=== PATIENT | female | born 1970 | race Caucasian/White ===

== ENCOUNTER 2019-03-12 18:58 | Inpatient (IN) | payer OTHER ==
[~2019-03-12] VITALS: Ht 157.5 cm; Wt 81.6 kg
--- NOTE | 2019-03-12 19:00 | NUR ---
ED Nurse Note: Patient was brought in by RA 94 c/o chest pain. Patient stated that her feeling a sharp chest pain. Patinet verbalized that the chest pain happened after smoking cigarette. Facial grimacing noted. No chest heaviness noted. Speech is clear not slurred. No facial drooping noted. No numbing sensation of upper extremities noted. Patient is alert and oriented x4.
[2019-03-12] MEDS ORDERED: GLIPIZIDE5 MG ORAL (19:03)
[2019-03-12] MEDS ORDERED: LISINOPRIL5 MG ORAL (19:03)
[2019-03-12] MEDS ORDERED: CLOPIDOGREL75 MG ORAL (19:03)
[2019-03-12] MEDS ORDERED: CARVEDILOL3.125 MG ORAL (19:03)
[2019-03-12] MEDS ORDERED: ASPIRIN81 MG ORAL (19:03)
[2019-03-12] MEDS ORDERED: FUROSEMIDE40 MG ORAL (19:03)
[2019-03-12] MEDS ORDERED: HEPARIN SO5000 UNIT2 SUBQ (19:03)
--- NOTE | 2019-03-12 19:21 | NUR ---
ED Nurse Note: Lab notified to obtain lab
--- NOTE | 2019-03-12 19:25 | NUR ---
ED Nurse Note: Recieved reprot to resume care, pt in bed awake and alert, on cardiac monitoring, pt here for chest pain, states at 8/10 and pressure feeling, IV line started and labs obtained and sent, pt tolerated well, no sob or labored breathing, will resume care as ordered and closely monitor.
[2019-03-12 19:45] VITALS: BP 92/72
[2019-03-12 19:57] LABS: ANION GAP 6 mmol/L (5-15); BASOPHILS % (AUTO) 1.7 % (0.0-2.0); BLOOD UREA NITROGEN 22 mg/dL (7-18); CALCIUM 8.8 MG/DL (8.5-10.1); CARBON DIOXIDE 28 MMOL/L (21-32); CHLORIDE 102 MMOL/L (98-107); EOSINOPHILS % (AUTO) 2.7 % (0.0-3.0); HEMATOCRIT 45.5 % (37.0-47.0); LYMPHOCYTES % (AUTO) 32.5 % (20.0-45.0); MEAN CORPUSCULAR VOLUME 88 FL (80-99); MONOCYTES % (AUTO) 7.8 % (1.0-10.0); NEUTROPHILS % (AUTO) 55.2 % (45.0-75.0); PLATELET COUNT 263 K/UL (150-450); POTASSIUM 4.2 MMOL/L (3.5-5.1); RED BLOOD COUNT 5.15 M/UL (4.20-5.40); RED CELL DISTRIBUTION WIDTH 11.8 % (11.6-14.8); SODIUM 136 MMOL/L (136-145); WHITE BLOOD COUNT 6.6 K/UL (4.8-10.8)
[2019-03-12 20:12] LABS: ALANINE AMINOTRANSFERASE 24 U/L (12-78); ALBUMIN/GLOBULIN RATIO 0.8 (1.0-2.7); ALKALINE PHOSPHATASE 122 U/L (46-116); ASPARTATE AMINO TRANSFERASE 13 U/L (15-37); BILIRUBIN,TOTAL 0.3 MG/DL (0.2-1.0); CKMB 1.4 NG/ML (0.0-3.6); CREATINE KINASE 45 U/L (26-308)
[2019-03-12 20:30] VITALS: BP 104/73
--- NOTE | 2019-03-12 20:47 | Emergency Room Report ---
History of Present Illness General Chief Complaint: Chest Pain Source: Patient, EMS Present Illness HPI 48-year-old female presents ED for evaluation. Brought in by EMS complaining of chest pain. Coming from intermediate facility. Chest pain started 30 minutes prior to arrival while smoking a cigarette. Was given aspirin. Was not given nitro as BP was low. Patient states chest pain has resolved. History of recent stent placement. Denies drug use. No other aggravating relieving factors. Denies any other associated symptoms Allergies: Coded Allergies: IODINE (Verified Allergy, Unknown, 03/12/19) METFORMIN (Verified Allergy, Unknown, 03/12/19) SULFAMETHOXAZOLE (Verified Allergy, Unknown, 03/12/19) TRIMETHOPRIM (Verified Allergy, Unknown, 03/12/19) Patient History Past Medical History: DM, HTN, CHF, COPD, psych hx Past Surgical History: none Pertinent Family History: none Social History: Denies: smoking, alcohol use, drug use Last Menstrual Period: 20 YEARS AGO Now: No Immunizations: UTD Reviewed Nursing Documentation: PMH: Agreed; PSxH: Agreed Nursing Documentation-PMH Past Medical History: No Stated History Hx Hypertension: Yes Hx COPD: Yes Hx Diabetes: Yes History Of Psychiatric Problem: Yes - ANXIETY/DEPRESSION Review of Systems All Other Systems: negative except mentioned in HPI Physical Exam Vital Signs Date Time Temp Pulse Resp B/P (MAP) Pulse Ox O2 Delivery O2 Flow Rate FiO2 03/12/19 18:55 98.1 81 18 92/60 (71) 98 03/12/19 19:45 Room Air Sp02 EP Interpretation: reviewed, normal General Appearance: no apparent distress, alert, GCS 15, non-toxic Head: normocephalic, atraumatic Eyes: bilateral eye normal inspection, bilateral eye PERRL ENT: hearing grossly normal, normal pharynx, no angioedema, normal voice Neck: full range of motion, supple/symm/no masses Respiratory: chest non-tender, lungs clear, normal breath sounds, speaking full sentences Cardiovascular #1: regular rate, rhythm, no edema Cardiovascular #2: 2+ carotid (R), 2+ carotid (L), 2+ radial (R), 2+ radial (L) , 2+ dorsalis pedis (R), 2+ dorsalis pedis (L) Gastrointestinal: normal bowel sounds, non tender, soft, non-distended, no guarding, no rebound Rectal: deferred Genitourinary: normal inspection, no CVA tenderness Musculoskeletal: back normal, gait/station normal, normal range of motion, non- tender Neurologic: alert, oriented x3, responsive, motor strength/tone normal, sensory intact, speech normal Psychiatric: judgement/insight normal, memory normal, mood/affect normal, no suicidal/homicidal ideation Reflexes: 3+ bicep (R), 3+ bicep (L), 3+ tricep (R), 3+ tricep (L), 3+ knee (R) , 3+ knee (L) Lymphatic: no adenopathy Medical Decision Making Diagnostic Impression: Primary Impression: ACS (acute coronary syndrome) ER Course Hospital Course 48 yo F presents with chest pain Differential diagnoses include: ME/unstable angina, contusion, muscle strain, PTX, rib fracture Clinical course Patient placed on stretcher. on residential monitor. After initial history and physical I ordered labs, EKG, chest x-ray, IVFs labs reviewed- no leukocytosis, hb/hct stable, electrolytes ok, trop x1 negative , BNP elevated EKG - NSR, twave inversions in lateral leads Chest x-ray- cardiomegaly Systolic in the 90s initially. Nitro was withheld. Patient not having chest pain in ED. Given small IV fluid bolus with BP improved. Given presentation and risk factors patient will be admitted Case discussed with Dr. Rodríguez and he agreed to accept the patient to his service for further care and support I. I feel this is a highly complex case requiring extensive working including EKG/Rhythm strip, Xray/CT/US, Blood/urine lab work, repeat exams while in ED, and administration of strong opiates/narcotics for pain control, admission to hospital or close patient follow up. Diagnosis - ACS admitted to telemetry OBS in serious condition Labs Test 03/12/19 19:35 03/12/19 20:20 White Blood Count 6.6 K/UL (4.8-10.8) Red Blood Count 5.15 M/UL (4.20-5.40) Hemoglobin 15.0 G/DL (12.0-16.0) Hematocrit 45.5 % (37.0-47.0) Mean Corpuscular Volume 88 FL (80-99) Mean Corpuscular Hemoglobin 29.2 PG (27.0-31.0) Mean Corpuscular Hemoglobin Concent 33.0 G/DL (32.0-36.0) Red Cell Distribution Width 11.8 % (11.6-14.8) Platelet Count 263 K/UL (150-450) Mean Platelet Volume 7.9 FL (6.5-10.1) Neutrophils (%) (Auto) 55.2 % (45.0-75.0) Lymphocytes (%) (Auto) 32.5 % (20.0-45.0) Monocytes (%) (Auto) 7.8 % (1.0-10.0) Eosinophils (%) (Auto) 2.7 % (0.0-3.0) Basophils (%) (Auto) 1.7 % (0.0-2.0) Sodium Level 136 MMOL/L (136-145) Potassium Level 4.2 MMOL/L (3.5-5.1) Chloride Level 102 MMOL/L (98-107) Carbon Dioxide Level 28 MMOL/L (21-32) Anion Gap 6 mmol/L (5-15) Blood Urea Nitrogen 22 mg/dL (7-18) Creatinine 1.0 MG/DL (0.55-1.30) Estimat Glomerular Filtration Rate 59.7 mL/min (>60) Glucose Level 231 MG/DL (74-106) Calcium Level 8.8 MG/DL (8.5-10.1) Total Bilirubin 0.3 MG/DL (0.2-1.0) Aspartate Amino Transf (AST/SGOT) 13 U/L (15-37) Alanine Aminotransferase (ALT/SGPT) 24 U/L (12-78) Alkaline Phosphatase 122 U/L (46-116) Total Creatine Kinase 45 U/L (26-308) Creatine Kinase MB 1.4 NG/ML (0.0-3.6) Creatine Kinase MB Relative Index 3.1 Troponin I 0.022 ng/mL (0.000-0.056) Pro-B-Type Natriuretic Peptide 734 pg/mL (0-125) Total Protein 6.6 G/DL (6.4-8.2) Albumin 3.0 G/DL (3.4-5.0) Globulin 3.6 g/dL Albumin/Globulin Ratio 0.8 (1.0-2.7) EKG Diagnostic Results Rate: normal Rhythm: NSR ST Segments: no acute changes ASA given to the pt in ED: No - given by ems Rhythm Strip Diag. Results EP Interpretation: yes Rhythm: NSR, no PVC's, no ectopy Chest X-Ray Diagnostic Results Chest X-Ray Diagnostic Results : Chest X-Ray Ordered: Yes # of Views/Limited/Complete: 1 View Indication: Chest Pain EP Interpretation: Yes Interpretation: no consolidation, no effusion, no pneumothorax, other - cardiomegaly Impression: Other - CHF Electronically Signed by: Electronically signed by Lauri Felix MD Last Vital Signs Date Time Temp Pulse Resp B/P (MAP) Pulse Ox O2 Delivery O2 Flow Rate FiO2 03/12/19 20:30 98.4 88 18 104/73 100 Room Air Status: improved Disposition: ADMITTED INPATIENT Condition: Serious Referrals: Carlyle Rodríguez DO (PCP) Lauri Felix MD Mar 12, 2019 20:47
[2019-03-12] MEDS ORDERED: Miralax 17gm pkt ORAL PRN (21:00)
[2019-03-12] MEDS ORDERED: Albuterol/Ipratropium 3ml neb HHN PRN (21:00)
--- NOTE | 2019-03-12 21:00 | NUR ---
ED Nurse Note: Pt assisted to bathroom, ambulated well, iv site patent, b/p increasing, pt remains weith chest pain at 01/18, MD is aware, pt b/p too low for pain meds at this time, pt is aware, urine sample sent, pt being admitted, swabs collected and belongings completed, pt resting in bed on cardiac monitoring, will continue to monitor and preapre for admission.
[2019-03-12] MEDS ORDERED: Morphine Sulfate 2mg/ml Inj(IV/IM USE ONLY) IVP ONE (21:15)
--- NOTE | 2019-03-12 21:55 | NUR ---
ED Nurse Note: Pt has room for admission, report called to floor nurse RICH Castorena, pt continues to rest quietly in bed, awake and alert, remains with pain at 8/10, medicated with morphine, fluids infusing, belongings list completed, pt being taken to floor bed via gurseb and ACLS protocols with RN and ER-Tech, nad noted during pt transport.
[2019-03-12 22:00] VITALS: BP 102/70
[2019-03-12 22:15] VITALS: BP 113/72
[2019-03-12] MEDS: Heparin 5000 units/ml inj SUBQ SCH (22:15)
[2019-03-12] MEDS: NovoLOG Insulin Flexpen SUBQ SCH (22:15)
--- NOTE | 2019-03-12 22:15 | NUR ---
HX OF DEPRESSION AND SI PER MEDICAL RECORDS. PT DENIES CURRENT SI, HI OR HALLUCINATIONS/DELUSIONS OF ANY KIND.
--- NOTE | 2019-03-12 22:15 | NUR ---
NURSE NOTES: OBTAINED REPORT FOR NEW ADMIT FROM ALEXANDER VILLANUEVA (ED). PT IS FROM [facility]. SHE IS A 48 YEAR OLD FEMALE HERE DUE TO ACUTE CORONARY SYNDROME. SHE IS A/OX4 AND ABLE TO VERBALIZE NEEDS. HEAD TO TOE ASSESSMENT DONE. ADMISSION PROTOCOL COMPLETE. SKIN INTACT UPON ADMISSION, ECCHYMOSIS NOTED TO RIGHT GROIN AREA. EDUCATED PT ON FALL RISK PRECAUTIONS AND RISK FOR SKIN BREAKDOWN. PT VERBALIZED UNDERSTANDING. VSS. PT ORIENTED TO UNIT AND STAFF. ALL NEEDS ANTICIPATED AND MET. CALL LIGHT WITHIN REACH AT ALL TIMES. PT INSTRUCTED TO USE CALL LIGHT PRN ASSISTANCE OR FOR ANY QUESTIONS/CONCERNS. Addendum: 03/13/19 at 0115 by Amber Tristan RN PER REPORT, SWABS FOR VRE/CRE AND MRSA ALREADY DONE AT ED PER FACILITY PROTOCOL.
[2019-03-13] VITALS (8 sets, daily range): BP systolic 87–128; BP diastolic 60–74
[2019-03-13] MEDS: NovoLOG Insulin Flexpen SUBQ SCH ×4 (05:34→22:08)
[2019-03-13] MEDS ORDERED: ZOFRAN4 M1 ORAL (05:56)
[2019-03-13] MEDS ORDERED: ALBUTEROL2.5 MG/3 M INH (05:57)
[2019-03-13] MEDS ORDERED: TRAZODONE HCL150 MG ORAL (06:00)
[2019-03-13] MEDS ORDERED: ABILIFY10 MG ORAL (06:02)
[2019-03-13] MEDS ORDERED: LEXAPRO10 MG ORAL (06:03)
--- NOTE | 2019-03-13 07:00 | NUR ---
FULL REPORT GIVEN TO MIN RN. PT RESTING IN BED FREE FROM APPARENT DISTRESS.
--- NOTE | 2019-03-13 07:00 | NUR ---
NURSE NOTES: Received report from Kell VILLANUEVA. Pt Awake and able to needs known. No c/o pain. No acute distress noted. Bed in the lowest position and locked. Side rails x2 up for safety. On room air. Denied SON. iv LH 22G SL patent and asymptomatic. Will continue to plan of care.
--- NOTE | 2019-03-13 07:26 | NUR ---
SPOKE WITH MARIBEL FROM LAB WHO CONFIRMS SWABS FOR VRE,CRE, AND MRSA HAVE BEEN RECEIVED AND RESULTS ARE PENDING.
[2019-03-13 07:45] LABS: ANION GAP 8 mmol/L (5-15); BLOOD UREA NITROGEN 19 mg/dL (7-18); CALCIUM 8.7 MG/DL (8.5-10.1); CARBON DIOXIDE 23 MMOL/L (21-32); CHLORIDE 110 MMOL/L (98-107); CREATININE 0.8 MG/DL (0.55-1.30); POTASSIUM 4.3 MMOL/L (3.5-5.1); SODIUM 141 MMOL/L (136-145)
--- NOTE | 2019-03-13 08:54 | NUR ---
RADIOLOGY DEPT., CHEST X-RAY DONE.-P.DYE
[2019-03-13] MEDS: Lisinopril 2.5mg tab ORAL SCH ×2 (09:00→09:10)
[2019-03-13] MEDS: ARIPiprazole 10mg tab ORAL SCH (09:09)
[2019-03-13] MEDS: Furosemide 40mg tab ORAL SCH ×2 (09:09→17:24)
[2019-03-13] MEDS: Heparin 5000 units/ml inj SUBQ SCH ×2 (09:12→22:09)
--- NOTE | 2019-03-13 11:02 | NUR ---
*-* NO INSURANCE INFORMATION IN THE BAR UNABLE TO SEND CLINICALS OR REVIEWS *-*
--- NOTE | 2019-03-13 11:21 | NUR ---
CASE MANAGEMENT REVIEW 48 YO FEMALE BIBA FROM [facility] CON[facility]. SNF TO ER CC CHEST PAIN SI- ACUTE CORONARY SYNDROME T- 98.0, HR 81, RR- 18, BP 92/60 NT- PRO BNP- 734 IS NS 500 ML IV BOLUS ASPIRIN 81 MG PO ADMITTED TO TELE STATUS TELE STATUS
--- NOTE | 2019-03-13 11:22 | Diagnostic Imaging Report ---
Indication: Dyspnea Comparison: None A single view chest radiograph was obtained. Findings: Cardiomediastinal appearance is within normal limits for age. The lungs are clear. Pulmonary vascularity is appropriate. The diaphragmatic contour is smooth and costophrenic angles are sharp. No pleural effusions are identified. The bones are unremarkable. Impression: No acute findings
--- NOTE | 2019-03-13 11:28 | Diagnostic Imaging Report ---
Indication: Dyspnea Comparison: 03/12/2019 A single view chest radiograph was obtained. Findings: Cardiac silhouette is enlarged but stable. Lungs remain clear. Surgical clips in the right axilla noted. Costophrenic angles are sharp. IMPRESSION: No change from the previous day
--- NOTE | 2019-03-13 12:56 | Diagnostic Imaging Report ---
APPROVED REPORT CPT Code: 34268 Present Symptoms Shortness of breath Comments: Pain BILATERAL: Imaging reveals a patent deep venous system bilaterally. There is no evidence of thrombus within the common femoral, superficial femoral, popliteal or tibial segments. The greater saphenous veins are within normal limits. Doppler indicates normal spontaneous flow within these segments.
--- NOTE | 2019-03-13 13:02 | Consultation ---
History of Present Illness General Chief Complaint: Chest Pain Present Illness HPI 48-year-old female with hx of cardiomyopathy, CAD, htn, Hepc presented to ED for evaluation of chest pain, started 30 minutes prior to arrival while smoking a cigarette. she has a recent stent placement. Denies current drug use. she is admitted to telemetry for further treatment. Allergies: Coded Allergies: IODINE (Verified Allergy, Unknown, 03/12/19) METFORMIN (Verified Allergy, Unknown, 03/12/19) SULFAMETHOXAZOLE (Verified Allergy, Unknown, 03/12/19) TRIMETHOPRIM (Verified Allergy, Unknown, 03/12/19) Medication History Scheduled Aripiprazole* (Abilify*), 10 MG ORAL DAILY, (Reported) Aspirin* (Aspirin*), 81 MG ORAL DAILY, (Reported) Carvedilol* (Carvedilol*), 3.125 MG ORAL EVERY 12 HOURS, (Reported) Clopidogrel* (Clopidogrel*), 75 MG ORAL DAILY, (Reported) Escitalopram Oxalate* (Lexapro*), 10 MG ORAL DAILY, (Reported) Furosemide* (Lasix*), 40 MG ORAL TWICE A DAY, (Reported) Glipizide* (Glipizide*), 5 MG ORAL BIDAC, (Reported) Heparin Sod (Porcine) (Heparin Sodium*), 5,000 UNITS SUBQ EVERY 12 HOURS, ( Reported) Lisinopril (Lisinopril*), 5 MG ORAL DAILY, (Reported) Ondansetron (Zofran), 4 MG ORAL Q4HR, (Reported) Trazodone* (Trazodone*), 50 MG ORAL BEDTIME, (Reported) Scheduled PRN Albuterol Sulfate* (Albuterol Sulfate Hhn*), 3 ML INH Q4H PRN for Shortness of Breath, (Reported) Patient History Healthcare decision maker ROBER PURVIS ([phone] Resuscitation status Full Code Advanced Directive on File No Past Medical/Surgical History Past Medical/Surgical History: (1) Cardiomyopathy (2) Diabetes mellitus (3) Hepatitis C Review of Systems All Other Systems: negative except mentioned in HPI Physical Exam General Appearance: WD/WN, no apparent distress Lines, tubes and drains: peripheral Neck: non-tender, normal alignment Respiratory/Chest: chest wall non-tender, lungs clear, normal breath sounds Breasts: no masses Cardiovascular/Chest: normal peripheral pulses Abdomen: normal bowel sounds, non tender Genitourinary/Rectal: normal genital exam Extremities: normal range of motion Last 24 Hour Vital Signs Date Time Temp Pulse Resp B/P (MAP) Pulse Ox O2 Delivery O2 Flow Rate FiO2 03/13/19 12:31 97.4 93 17 103/73 (83) 98 03/13/19 12:00 97.4 89 16 87/60 (69) 98 03/13/19 09:37 97.1 86 18 99/74 (82) 100 03/13/19 09:08 89 18 97 Room Air 21 03/13/19 09:00 Room Air 03/13/19 09:00 99/74 03/13/19 08:00 89 03/13/19 08:00 97.1 92 16 93/69 (77) 93 03/13/19 04:00 88 03/13/19 04:00 97.8 65 18 110/60 (77) 97 03/13/19 00:00 98.4 70 18 97/60 (72) 98 03/13/19 00:00 88 03/12/19 23:30 Room Air 03/12/19 22:15 98.6 79 20 113/72 (86) 99 03/12/19 22:10 98.4 88 16 102/70 100 Room Air 03/12/19 22:00 98.4 88 16 102/70 100 Room Air 03/12/19 20:30 98.4 88 18 104/73 100 Room Air 03/12/19 19:45 98.1 84 18 92/72 100 Room Air 03/12/19 19:15 81 18 03/12/19 18:55 98.1 81 18 92/60 (71) 98 Intake and Output 03/12/19 03/13/19 18:59 06:59 Output Total 200 ml Balance -200 ml Output Urine Total 200 ml # Voids 3 Laboratory Tests Test 03/12/19 19:35 03/12/19 20:20 03/13/19 05:35 White Blood Count 6.6 K/UL (4.8-10.8) Red Blood Count 5.15 M/UL (4.20-5.40) Hemoglobin 15.0 G/DL (12.0-16.0) Hematocrit 45.5 % (37.0-47.0) Mean Corpuscular Volume 88 FL (80-99) Mean Corpuscular Hemoglobin 29.2 PG (27.0-31.0) Mean Corpuscular Hemoglobin Concent 33.0 G/DL (32.0-36.0) Red Cell Distribution Width 11.8 % (11.6-14.8) Platelet Count 263 K/UL (150-450) Mean Platelet Volume 7.9 FL (6.5-10.1) Neutrophils (%) (Auto) 55.2 % (45.0-75.0) Lymphocytes (%) (Auto) 32.5 % (20.0-45.0) Monocytes (%) (Auto) 7.8 % (1.0-10.0) Eosinophils (%) (Auto) 2.7 % (0.0-3.0) Basophils (%) (Auto) 1.7 % (0.0-2.0) Sodium Level 136 MMOL/L (136-145) 141 MMOL/L (136-145) Potassium Level 4.2 MMOL/L (3.5-5.1) 4.3 MMOL/L (3.5-5.1) Chloride Level 102 MMOL/L (98-107) 110 MMOL/L (98-107) H Carbon Dioxide Level 28 MMOL/L (21-32) 23 MMOL/L (21-32) Anion Gap 6 mmol/L (5-15) 8 mmol/L (5-15) Blood Urea Nitrogen 22 mg/dL (7-18) H 19 mg/dL (7-18) H Creatinine 1.0 MG/DL (0.55-1.30) 0.8 MG/DL (0.55-1.30) Estimat Glomerular Filtration Rate 59.7 mL/min (>60) > 60 mL/min (>60) Glucose Level 231 MG/DL (74-106) H 100 MG/DL (74-106) # Calcium Level 8.8 MG/DL (8.5-10.1) 8.7 MG/DL (8.5-10.1) Total Bilirubin 0.3 MG/DL (0.2-1.0) Aspartate Amino Transf (AST/SGOT) 13 U/L (15-37) L Alanine Aminotransferase (ALT/SGPT) 24 U/L (12-78) Alkaline Phosphatase 122 U/L (46-116) H Total Creatine Kinase 45 U/L (26-308) Creatine Kinase MB 1.4 NG/ML (0.0-3.6) Creatine Kinase MB Relative Index 3.1 Troponin I 0.022 ng/mL (0.000-0.056) Pro-B-Type Natriuretic Peptide 734 pg/mL (0-125) H Total Protein 6.6 G/DL (6.4-8.2) Albumin 3.0 G/DL (3.4-5.0) L Globulin 3.6 g/dL Albumin/Globulin Ratio 0.8 (1.0-2.7) L Urine Opiates Screen Negative (NEGATIVE) Urine Barbiturates Screen Negative (NEGATIVE) Phencyclidine (PCP) Screen Negative (NEGATIVE) Urine Amphetamines Screen Negative (NEGATIVE) Urine Benzodiazepines Screen Negative (NEGATIVE) Urine Cocaine Screen Negative (NEGATIVE) Urine Marijuana (THC) Screen Negative (NEGATIVE) Height (Feet): 5 Height (Inches): 2.00 Weight (Pounds): 180 Medications Current Medications Medications (Trade) Dose Ordered Sig/Bre Route PRN Reason Start Time Stop Time Status Last Admin Dose Admin Acetaminophen (Tylenol) 650 mg Q4H PRN ORAL Fever 03/12/19 21:00 04/11/19 20:59 Albuterol/ Ipratropium (Albuterol/ Ipratropium) 3 ml Q4H PRN HHN Shortness of Breath 03/12/19 21:00 03/17/19 20:59 Aripiprazole (Abilify) 10 mg DAILY ORAL 03/13/19 09:00 04/12/19 08:59 03/13/19 09:09 Clopidogrel Bisulfate (Plavix) 75 mg DAILY ORAL 03/13/19 09:00 04/12/19 08:59 03/13/19 09:09 Dextrose (Dextrose 50%) 25 ml Q30M PRN IV Hypoglycemia 03/12/19 21:00 04/11/19 20:59 Dextrose (Dextrose 50%) 50 ml Q30M PRN IV Hypoglycemia 03/12/19 21:00 04/11/19 20:59 Escitalopram Oxalate (Lexapro) 10 mg DAILY ORAL 03/13/19 09:00 04/12/19 08:59 03/13/19 09:09 Furosemide (Lasix) 40 mg TWICE A DAY ORAL 03/13/19 09:00 04/12/19 08:59 03/13/19 09:09 Heparin Sodium (Porcine) (Heparin 5000 units/ml) 5,000 units EVERY 12 HOURS SUBQ 03/12/19 21:00 04/11/19 20:59 03/13/19 09:12 Insulin Aspart (NovoLOG) BEFORE MEALS AND HS SUBQ 03/12/19 21:00 04/11/19 20:59 03/13/19 11:45 Lisinopril (Zestril) 5 mg DAILY ORAL 03/13/19 09:00 04/12/19 08:59 Ondansetron HCl (Zofran) 4 mg Q6H PRN IVP Nausea & Vomiting 03/12/19 21:00 04/11/19 20:59 Polyethylene Glycol (Miralax) 17 gm DAILYPRN PRN ORAL Constipation 03/12/19 21:00 04/11/19 20:59 Temazepam (Restoril) 15 mg HSPRN PRN ORAL Insomnia 03/12/19 21:00 03/19/19 20:59 03/12/19 23:22 Trazodone HCl (Desyrel) 50 mg BEDTIME ORAL 03/13/19 21:00 04/12/19 20:59 Assessment/Plan Problem List: (1) ACS (acute coronary syndrome) ICD Codes: I24.9 - Acute ischemic heart disease, unspecified SNOMED: 967484955 (2) Cardiomyopathy ICD Codes: I42.9 - Cardiomyopathy, unspecified SNOMED: 28821840 (3) Diabetes mellitus ICD Codes: E11.9 - Type 2 diabetes mellitus without complications SNOMED: 81930172 (4) Hepatitis C ICD Codes: B19.20 - Unspecified viral hepatitis C without hepatic coma SNOMED: 57069322 Assessment/Plan: serial ekg, troponin echocardiogram cardiology to see. Katelynn Wilkins MD Mar 13, 2019 13:02
[2019-03-13] MEDS: Morphine Sulfate 2mg/ml Inj(IV/IM USE ONLY) IVP PRN ×2 (15:17→19:53)
--- NOTE | 2019-03-13 17:30 | History and Physical Report ---
DATE OF ADMISSION: 03/12/2019 CONSULTANTS: 1. Jerald Gonzalez M.D. 2. Katelynn Wilkins M.D. CHIEF COMPLAINT: Shortness of breath and chest pain. BRIEF HISTORY: This is a 48-year-old female from [facility], presented with shortness of breath, chest pain, sharp substernal radiating to neck, slight dizziness and vomiting, but no loss of consciousness. The patient came to [facility], diagnosed with ACS and CHF and admitted to telemetry for further care. Currently, calm in mood, chest pain has somewhat improved, no complaint. REVIEW OF SYSTEMS: Slight chest pain. Slight shortness of breath. No nausea, vomiting, or diarrhea. PAST MEDICAL HISTORY: Diabetes and hypertension. PAST SURGICAL HISTORY: Gallbladder. MEDICATIONS: Include , morphine, Plavix, Lasix, Restoril, Abilify, Lexapro, Tylenol, heparin, and Zofran. ALLERGIES: Metformin, Bactrim, and iodine dye. SOCIAL HISTORY: Positive smoking. No alcohol. No intravenous drug abuse. FAMILY HISTORY: Noncontributory. PHYSICAL EXAMINATION: GENERAL: Calm in room, oriented x3, and in no acute distress. VITAL SIGNS: Temperature is 97 degrees, pulse 93, respirations 17, and blood pressure 103/73. CARDIOVASCULAR: No murmurs. LUNGS: Distant and clear. ABDOMEN: Bowel sounds positive. Nontender. Nondistended. EXTREMITIES: Show no cyanosis or edema. NEUROLOGIC: The patient moves all extremities, slightly weak. LABORATORY AND DIAGNOSTIC DATA: Labs at this time show CBC is normal. BMP shows chloride 110, BUN 19, otherwise BMP is normal. Troponin 0.022. BNP is 734. Albumin 3.0. Urine tox is negative. ASSESSMENT: 1. ACS. 2. CHF. 3. Diabetes. 4. Hypertension. 5. Malnutrition. PLAN: 1. Blood pressure and blood sugar control. 2. Cardiology followup. 3. Dietary followup. 4. Psych evaluation by . 5. We will continue to follow this patient. Carlyle Rodríguez D.O. DR: DAMASO JOB#: [id number] CC:
--- NOTE | 2019-03-13 18:03 | Cardiology Progress Note ---
Assessment/Plan Assessment/Plan The patient is seen and examined, full consult note will be dictated shortly. Objective Last 24 Hour Vital Signs Date Time Temp Pulse Resp B/P (MAP) Pulse Ox O2 Delivery O2 Flow Rate FiO2 03/13/19 12:31 97.4 93 17 103/73 (83) 98 03/13/19 12:00 97.4 89 16 87/60 (69) 98 03/13/19 12:00 89 03/13/19 09:37 97.1 86 18 99/74 (82) 100 03/13/19 09:08 89 18 97 Room Air 21 03/13/19 09:00 Room Air 03/13/19 09:00 99/74 03/13/19 08:00 89 03/13/19 08:00 97.1 92 16 93/69 (77) 93 03/13/19 04:00 88 03/13/19 04:00 97.8 65 18 110/60 (77) 97 03/13/19 00:00 98.4 70 18 97/60 (72) 98 03/13/19 00:00 88 03/12/19 23:30 Room Air 03/12/19 22:15 98.6 79 20 113/72 (86) 99 03/12/19 22:10 98.4 88 16 102/70 100 Room Air 03/12/19 22:00 98.4 88 16 102/70 100 Room Air 03/12/19 20:30 98.4 88 18 104/73 100 Room Air 03/12/19 19:45 98.1 84 18 92/72 100 Room Air 03/12/19 19:15 81 18 03/12/19 18:55 98.1 81 18 92/60 (71) 98 Intake and Output 03/12/19 03/13/19 19:00 07:00 Output Total 200 ml Balance -200 ml Output Urine Total 200 ml # Voids 5 Laboratory Tests Test 03/12/19 19:35 03/12/19 20:20 03/13/19 05:35 White Blood Count 6.6 K/UL (4.8-10.8) Red Blood Count 5.15 M/UL (4.20-5.40) Hemoglobin 15.0 G/DL (12.0-16.0) Hematocrit 45.5 % (37.0-47.0) Mean Corpuscular Volume 88 FL (80-99) Mean Corpuscular Hemoglobin 29.2 PG (27.0-31.0) Mean Corpuscular Hemoglobin Concent 33.0 G/DL (32.0-36.0) Red Cell Distribution Width 11.8 % (11.6-14.8) Platelet Count 263 K/UL (150-450) Mean Platelet Volume 7.9 FL (6.5-10.1) Neutrophils (%) (Auto) 55.2 % (45.0-75.0) Lymphocytes (%) (Auto) 32.5 % (20.0-45.0) Monocytes (%) (Auto) 7.8 % (1.0-10.0) Eosinophils (%) (Auto) 2.7 % (0.0-3.0) Basophils (%) (Auto) 1.7 % (0.0-2.0) Sodium Level 136 MMOL/L (136-145) 141 MMOL/L (136-145) Potassium Level 4.2 MMOL/L (3.5-5.1) 4.3 MMOL/L (3.5-5.1) Chloride Level 102 MMOL/L (98-107) 110 MMOL/L (98-107) H Carbon Dioxide Level 28 MMOL/L (21-32) 23 MMOL/L (21-32) Anion Gap 6 mmol/L (5-15) 8 mmol/L (5-15) Blood Urea Nitrogen 22 mg/dL (7-18) H 19 mg/dL (7-18) H Creatinine 1.0 MG/DL (0.55-1.30) 0.8 MG/DL (0.55-1.30) Estimat Glomerular Filtration Rate 59.7 mL/min (>60) > 60 mL/min (>60) Glucose Level 231 MG/DL (74-106) H 100 MG/DL (74-106) # Calcium Level 8.8 MG/DL (8.5-10.1) 8.7 MG/DL (8.5-10.1) Total Bilirubin 0.3 MG/DL (0.2-1.0) Aspartate Amino Transf (AST/SGOT) 13 U/L (15-37) L Alanine Aminotransferase (ALT/SGPT) 24 U/L (12-78) Alkaline Phosphatase 122 U/L (46-116) H Total Creatine Kinase 45 U/L (26-308) Creatine Kinase MB 1.4 NG/ML (0.0-3.6) Creatine Kinase MB Relative Index 3.1 Troponin I 0.022 ng/mL (0.000-0.056) Pro-B-Type Natriuretic Peptide 734 pg/mL (0-125) H Total Protein 6.6 G/DL (6.4-8.2) Albumin 3.0 G/DL (3.4-5.0) L Globulin 3.6 g/dL Albumin/Globulin Ratio 0.8 (1.0-2.7) L Urine Opiates Screen Negative (NEGATIVE) Urine Barbiturates Screen Negative (NEGATIVE) Phencyclidine (PCP) Screen Negative (NEGATIVE) Urine Amphetamines Screen Negative (NEGATIVE) Urine Benzodiazepines Screen Negative (NEGATIVE) Urine Cocaine Screen Negative (NEGATIVE) Urine Marijuana (THC) Screen Negative (NEGATIVE) Jerald Gonzalez MD Mar 13, 2019 18:03
--- NOTE | 2019-03-13 18:30 | NUR ---
NURSE NOTES: Pt c/o SOB and O2 sat checked with 95% on room. Called RT for PRN breathing Tx and also applied 2LPM via N/C. Nasal cannula is found broken and explained the patient that i will get the another N/C from RT because that was he last cannula that is on the floor. But she was upset and told me that "she are a stupid liar and i am refusing you are my nurse. Do not come back to me" Explained the patient that the RN will call the RT now to get it but she was upset and walking to the nursing station and states the charge nurse "I am going to refuse the nurse, i do not want to see her anymore" RN called a RT again for the breathing Tx and Nasal cannula. Per RT, he will be on the floor soon after endorse done. Informed the patient that next due of pain med of breathing Tx etc thru another nurse.
--- NOTE | 2019-03-13 19:18 | NUR ---
HAND-OFF: Report given to Meghan VILLANUEVA. Pt remains stable.
--- NOTE | 2019-03-13 19:25 | NUR ---
NURSE NOTES: Received patient from RICH Romeo, patient in stable condition, AOx4, denies pain at this time, ambulatory, on the phone, IV site left hand g 22, asymptomatic, intact, patent, bed low&locked, side rails upx2, call light within reach, will continue to monitor and reassess
[2019-03-13] MEDS: TraZODone 50mg tab ORAL SCH (22:05)
[2019-03-14] VITALS: BP 96/68
--- NOTE | 2019-03-14 01:00 | NUR ---
Patient's Mg is 1.5, called Dr. Gonzalez and Claudette, awaiting call back
[2019-03-14 04:00] VITALS: BP 95/58
[2019-03-14] MEDS: NovoLOG Insulin Flexpen SUBQ SCH ×4 (06:30→20:32)
--- NOTE | 2019-03-14 07:01 | NUR ---
HAND-OFF: Report given to Clay, patient in stable condition, plan of care endorsed.
[2019-03-14 07:07] LABS: BASOPHILS % (AUTO) 1.7 % (0.0-2.0); EOSINOPHILS % (AUTO) 3.4 % (0.0-3.0); HEMATOCRIT 42.9 % (37.0-47.0); LYMPHOCYTES % (AUTO) 32.2 % (20.0-45.0); MEAN CORPUSCULAR VOLUME 89 FL (80-99); MONOCYTES % (AUTO) 6.6 % (1.0-10.0); NEUTROPHILS % (AUTO) 56.1 % (45.0-75.0); PLATELET COUNT 233 K/UL (150-450); RED BLOOD COUNT 4.82 M/UL (4.20-5.40); RED CELL DISTRIBUTION WIDTH 12.7 % (11.6-14.8); WHITE BLOOD COUNT 5.8 K/UL (4.8-10.8)
[2019-03-14 07:28] LABS: ANION GAP 8 mmol/L (5-15); BLOOD UREA NITROGEN 19 mg/dL (7-18); CALCIUM 8.9 MG/DL (8.5-10.1); CARBON DIOXIDE 24 MMOL/L (21-32); CHLORIDE 106 MMOL/L (98-107); CREATININE 0.9 MG/DL (0.55-1.30); POTASSIUM 4.2 MMOL/L (3.5-5.1); SODIUM 138 MMOL/L (136-145)
[2019-03-14] MEDS: Morphine Sulfate 2mg/ml Inj(IV/IM USE ONLY) IVP PRN ×2 (07:51→18:10)
[2019-03-14 08:00] VITALS: BP 100/72
--- NOTE | 2019-03-14 08:11 | NUR ---
NURSE NOTES: Pt in bed in low position, call light within reach, IV site left hand 24 intact and asymptomatic, pt reports chest pain of 7/10 MS was given, mag level was 1.5 2 bags to be given, pt eating breakfast at bedside, no s/s of distress or sob noted. pt has bathroom privileges,
--- NOTE | 2019-03-14 09:03 | General Progress Note ---
Assessment/Plan Problem List: (1) HTN (hypertension) ICD Codes: I10 - Essential (primary) hypertension SNOMED: 73473882 (2) CHF (congestive heart failure) ICD Codes: I50.9 - Heart failure, unspecified SNOMED: 81918995 (3) Chest pain ICD Codes: R07.9 - Chest pain, unspecified SNOMED: 09739581 (4) ACS (acute coronary syndrome) ICD Codes: I24.9 - Acute ischemic heart disease, unspecified SNOMED: 259017252 (5) Diabetes mellitus ICD Codes: E11.9 - Type 2 diabetes mellitus without complications SNOMED: 95496105 Status: stable, progressing Assessment/Plan: pt diet pain control cardio f/u cbc bmp am Subjective Constitutional: Reports: weakness Allergies: Coded Allergies: IODINE (Verified Allergy, Unknown, 03/12/19) METFORMIN (Verified Allergy, Unknown, 03/12/19) SULFAMETHOXAZOLE (Verified Allergy, Unknown, 03/12/19) TRIMETHOPRIM (Verified Allergy, Unknown, 03/12/19) All Systems: reviewed and negative except above Subjective sleepy calm Objective Last 24 Hour Vital Signs Date Time Temp Pulse Resp B/P (MAP) Pulse Ox O2 Delivery O2 Flow Rate FiO2 03/14/19 08:21 98.3 03/14/19 08:00 98.3 85 18 100/72 (81) 97 03/14/19 04:00 82 03/14/19 04:00 97.3 65 18 95/58 (70) 97 03/14/19 00:00 97.6 81 20 96/68 (77) 95 03/14/19 00:00 74 03/14/19 00:00 97.6 73 18 96/68 (77) 97 03/13/19 21:00 Room Air 03/13/19 21:00 81 109/69 03/13/19 20:00 97.3 81 20 109/69 (82) 97 03/13/19 20:00 97.3 81 20 109/69 (82) 95 03/13/19 20:00 84 03/13/19 19:18 87 18 100 Nasal Cannula 2.0 28 86 18 98 03/13/19 16:00 84 03/13/19 16:00 98.2 88 20 106/73 (84) 95 03/13/19 12:31 97.4 93 17 103/73 (83) 98 03/13/19 12:00 97.4 89 16 87/60 (69) 98 03/13/19 12:00 89 03/13/19 09:37 97.1 86 18 99/74 (82) 100 03/13/19 09:08 89 18 97 Room Air 21 Intake and Output 03/13/19 03/14/19 19:00 07:00 Intake Total 1000 ml Output Total 200 ml Balance 800 ml Intake Oral 1000 ml Output Urine Total 200 ml # Voids 4 # Bowel Movements 1 Laboratory Tests 03/13/19 19:50: Magnesium Level 1.5L, Troponin I 0.054 03/14/19 05:55: White Blood Count 5.8, Red Blood Count 4.82, Hemoglobin 14.0, Hematocrit 42.9, Mean Corpuscular Volume 89, Mean Corpuscular Hemoglobin 29.0, Mean Corpuscular Hemoglobin Concent 32.5, Red Cell Distribution Width 12.7, Platelet Count 233, Mean Platelet Volume 8.4, Neutrophils (%) (Auto) 56.1, Lymphocytes (%) (Auto) 32.2, Monocytes (%) (Auto) 6.6, Eosinophils (%) (Auto) 3.4H, Basophils (%) (Auto ) 1.7, Sodium Level 138, Potassium Level 4.2, Chloride Level 106, Carbon Dioxide Level 24, Anion Gap 8, Blood Urea Nitrogen 19H, Creatinine 0.9, Estimat Glomerular Filtration Rate > 60, Glucose Level 182H, Calcium Level 8.9 Height (Feet): 5 Height (Inches): 2.00 Weight (Pounds): 180 General Appearance: lethargic EENT: normal ENT inspection Neck: normal alignment Cardiovascular: normal peripheral pulses, normal rate, regular rhythm Respiratory/Chest: chest wall non-tender, lungs clear, normal breath sounds Abdomen: normal bowel sounds, non tender, soft Extremities: normal inspection Edema: no edema noted Arm (L), no edema noted Arm (R), no edema noted Leg (L), no edema noted Leg (R), no edema noted Pedal (L), no edema noted Pedal (R), no edema noted Generalized Neurologic: motor weakness Skin: normal pigmentation, warm/dry Carlyle Rodríguez DO Mar 14, 2019 09:03
[2019-03-14] MEDS: Furosemide 40mg tab ORAL SCH ×3 (10:15→18:11)
[2019-03-14] MEDS: Lisinopril 2.5mg tab ORAL SCH (10:15)
[2019-03-14] MEDS: Heparin 5000 units/ml inj SUBQ SCH ×2 (10:15→20:29)
[2019-03-14] MEDS: ARIPiprazole 10mg tab ORAL SCH (10:16)
[2019-03-14 12:00] VITALS: BP 90/61
--- NOTE | 2019-03-14 12:13 | Pulmonology Progress Note ---
Assessment/Plan Problems: (1) ACS (acute coronary syndrome) (2) Cardiomyopathy (3) Diabetes mellitus (4) Hepatitis C Assessment/Plan improving all reviewed pt wants to go back to jail. Subjective ROS Limited/Unobtainable: No Constitutional: Reports: no symptoms HEENT: Repors: no symptoms Allergies: Coded Allergies: IODINE (Verified Allergy, Unknown, 03/12/19) METFORMIN (Verified Allergy, Unknown, 03/12/19) SULFAMETHOXAZOLE (Verified Allergy, Unknown, 03/12/19) TRIMETHOPRIM (Verified Allergy, Unknown, 03/12/19) Objective Last 24 Hour Vital Signs Date Time Temp Pulse Resp B/P (MAP) Pulse Ox O2 Delivery O2 Flow Rate FiO2 03/14/19 10:16 85 100/72 03/14/19 10:15 100/72 03/14/19 09:27 Room Air 03/14/19 08:21 98.3 03/14/19 08:00 98.3 85 18 100/72 (81) 97 03/14/19 04:00 82 03/14/19 04:00 97.3 65 18 95/58 (70) 97 03/14/19 00:00 97.6 81 20 96/68 (77) 95 03/14/19 00:00 74 03/14/19 00:00 97.6 73 18 96/68 (77) 97 03/13/19 21:00 Room Air 03/13/19 21:00 81 109/69 03/13/19 20:00 97.3 81 20 109/69 (82) 97 03/13/19 20:00 97.3 81 20 109/69 (82) 95 03/13/19 20:00 84 03/13/19 19:18 87 18 100 Nasal Cannula 2.0 28 86 18 98 03/13/19 16:00 84 03/13/19 16:00 98.2 88 20 106/73 (84) 95 03/13/19 12:31 97.4 93 17 103/73 (83) 98 Intake and Output 03/13/19 03/14/19 18:59 06:59 Intake Total 1000 ml Output Total 200 ml Balance 800 ml Intake Oral 1000 ml Output Urine Total 200 ml # Voids 4 # Bowel Movements 1 General Appearance: WD/WN HEENT: normocephalic, atraumatic Respiratory/Chest: chest wall non-tender, lungs clear Cardiovascular: normal peripheral pulses, no gallop/murmur Abdomen: non distended Extremities: no cyanosis Skin: no lesions Laboratory Tests 03/13/19 19:50: Magnesium Level 1.5L, Troponin I 0.054 03/14/19 05:55: White Blood Count 5.8, Red Blood Count 4.82, Hemoglobin 14.0, Hematocrit 42.9, Mean Corpuscular Volume 89, Mean Corpuscular Hemoglobin 29.0, Mean Corpuscular Hemoglobin Concent 32.5, Red Cell Distribution Width 12.7, Platelet Count 233, Mean Platelet Volume 8.4, Neutrophils (%) (Auto) 56.1, Lymphocytes (%) (Auto) 32.2, Monocytes (%) (Auto) 6.6, Eosinophils (%) (Auto) 3.4H, Basophils (%) (Auto ) 1.7, Sodium Level 138, Potassium Level 4.2, Chloride Level 106, Carbon Dioxide Level 24, Anion Gap 8, Blood Urea Nitrogen 19H, Creatinine 0.9, Estimat Glomerular Filtration Rate > 60, Glucose Level 182H, Calcium Level 8.9 Current Medications Medications (Trade) Dose Ordered Sig/Bre Route PRN Reason Start Time Stop Time Status Last Admin Dose Admin Acetaminophen (Tylenol) 650 mg Q4H PRN ORAL Fever 03/12/19 21:00 04/11/19 20:59 Albuterol/ Ipratropium (Albuterol/ Ipratropium) 3 ml Q4H PRN HHN Shortness of Breath 03/12/19 21:00 03/17/19 20:59 03/13/19 19:18 Aripiprazole (Abilify) 10 mg DAILY ORAL 03/13/19 09:00 04/12/19 08:59 03/14/19 10:16 Carvedilol (Coreg) 3.125 mg EVERY 12 HOURS ORAL 03/13/19 21:00 04/12/19 20:59 03/14/19 10:16 Clopidogrel Bisulfate (Plavix) 75 mg DAILY ORAL 03/13/19 09:00 04/12/19 08:59 03/14/19 10:16 Dextrose (Dextrose 50%) 25 ml Q30M PRN IV Hypoglycemia 03/12/19 21:00 04/11/19 20:59 Dextrose (Dextrose 50%) 50 ml Q30M PRN IV Hypoglycemia 03/12/19 21:00 04/11/19 20:59 Escitalopram Oxalate (Lexapro) 10 mg DAILY ORAL 03/13/19 09:00 04/12/19 08:59 03/14/19 10:16 Furosemide (Lasix) 40 mg TWICE A DAY ORAL 03/13/19 09:00 04/12/19 08:59 03/13/19 17:24 Heparin Sodium (Porcine) (Heparin 5000 units/ml) 5,000 units EVERY 12 HOURS SUBQ 03/12/19 21:00 04/11/19 20:59 03/13/19 22:09 Insulin Aspart (NovoLOG) BEFORE MEALS AND HS SUBQ 03/12/19 21:00 04/11/19 20:59 03/13/19 22:08 Lisinopril (Zestril) 5 mg DAILY ORAL 03/13/19 09:00 04/12/19 08:59 Morphine Sulfate (Morphine Sulfate) 2 mg Q4H PRN IVP For Pain 03/13/19 13:30 03/20/19 13:29 03/14/19 07:51 Ondansetron HCl (Zofran) 4 mg Q6H PRN IVP Nausea & Vomiting 03/12/19 21:00 04/11/19 20:59 Polyethylene Glycol (Miralax) 17 gm DAILYPRN PRN ORAL Constipation 03/12/19 21:00 04/11/19 20:59 Temazepam (Restoril) 15 mg HSPRN PRN ORAL Insomnia 03/12/19 21:00 03/19/19 20:59 03/13/19 22:18 Trazodone HCl (Desyrel) 50 mg BEDTIME ORAL 03/13/19 21:00 04/12/19 20:59 03/13/19 22:05 Katelynn Wilkins MD Mar 14, 2019 12:13
[2019-03-14 16:00] VITALS: BP 99/70
--- NOTE | 2019-03-14 17:01 | NUR ---
CASE MANGER REVIEW SI ACUTE CORONARY SYNDROME T 97.5, HR 83, BP 90/60, RR 20 BUN 19, TROP. 0.054 CXR- NO SIGNIFICANT FINDINGS VENOUS DUPLEX- NO SIGNIFICANT FINDINGS IS D5 1/2 1000ML IV MAG SULFATE IVPB COREG Q12 LASIX BID HEPARIN Q12 MORPHINE IVP Q4H PRN PLAVIX QD NOVOLOG SQ W/ MEALS TELE STATUS
--- NOTE | 2019-03-14 19:05 | NUR ---
HAND-OFF: Report given to waleska VILLANUEVA.
--- NOTE | 2019-03-14 19:24 | NUR ---
NURSE NOTES: Called Md Larsen as Md Rodríguez wants to consult her for pt psychiatric issue. Pt came out of the room and was yelling that she didnt feel safe here gave no reason why. She appeared to have a nervous breakdown for no apparent reason. I contacted md Larsen...... lm ... called back and spoke to Monica Piña and ordered 2mg
--- NOTE | 2019-03-14 19:34 | NUR ---
NURSE NOTES: Received patient from RICH Williamson patient stable but anxious , yelling , screaming in the hallway for psych meds. Dr. Larsen was called and ativan order was obtained. will continue to monitor the patient throughout the shift
[2019-03-14 20:00] VITALS: BP 111/86
[2019-03-14] MEDS: LORazepam 1mg tab ORAL PRN (20:27)
[2019-03-14] MEDS: TraZODone 50mg tab ORAL SCH (20:30)
--- NOTE | 2019-03-14 20:30 | NUR ---
Patient went back to her room, more calm and able to express her feelings. patient crying and stated :"I want to go home" offered ice and a snack,gave reassurance and patient agreed to call me if she needed anything. will continue to monitor
--- NOTE | 2019-03-14 22:00 | NUR ---
NURSE NOTES: Patient sleeping comfortably in bed, vss, will continue to monitor
[2019-03-15] VITALS: BP 104/62
[2019-03-15 04:00] VITALS: BP 115/69
[2019-03-15] MEDS: NovoLOG Insulin Flexpen SUBQ SCH ×2 (06:42→11:40)
--- NOTE | 2019-03-15 07:15 | NUR ---
HAND-OFF: Report given to to RICH Velazquez, patient in stable condition, plan of care endorsed.
--- NOTE | 2019-03-15 07:40 | NUR ---
NURSE NOTES: Received report from RICH Christianson. Pt in bed, asleep, no apparent distress noted, respiration unlabored and regular, bed in lowest position, call light within reach.
[2019-03-15 08:00] VITALS: BP 101/68
[2019-03-15] MEDS: Lisinopril 2.5mg tab ORAL SCH (09:00)
[2019-03-15] MEDS: LORazepam 1mg tab ORAL PRN (09:05)
[2019-03-15] MEDS: ARIPiprazole 10mg tab ORAL SCH (09:05)
[2019-03-15] MEDS: Heparin 5000 units/ml inj SUBQ SCH (09:10)
[2019-03-15 10:24] LABS: ANION GAP 9 mmol/L (5-15); BLOOD UREA NITROGEN 19 mg/dL (7-18); CALCIUM 8.9 MG/DL (8.5-10.1); CARBON DIOXIDE 23 MMOL/L (21-32); CHLORIDE 105 MMOL/L (98-107); CREATININE 0.9 MG/DL (0.55-1.30); POTASSIUM 4.4 MMOL/L (3.5-5.1); SODIUM 137 MMOL/L (136-145)
[2019-03-15 10:28] LABS: BASOPHILS % (AUTO) 1.6 % (0.0-2.0); EOSINOPHILS % (AUTO) 2.3 % (0.0-3.0); HEMOGLOBIN 14.1 G/DL (12.0-16.0); LYMPHOCYTES % (AUTO) 28.6 % (20.0-45.0); MEAN CORPUSCULAR VOLUME 88 FL (80-99); MONOCYTES % (AUTO) 6.1 % (1.0-10.0); NEUTROPHILS % (AUTO) 61.5 % (45.0-75.0); PLATELET COUNT 213 K/UL (150-450); RED BLOOD COUNT 4.86 M/UL (4.20-5.40); RED CELL DISTRIBUTION WIDTH 12.6 % (11.6-14.8)
--- NOTE | 2019-03-15 10:59 | General Progress Note ---
Assessment/Plan Problem List: (1) HTN (hypertension) ICD Codes: I10 - Essential (primary) hypertension SNOMED: 25689741 (2) CHF (congestive heart failure) ICD Codes: I50.9 - Heart failure, unspecified SNOMED: 39753438 (3) Chest pain ICD Codes: R07.9 - Chest pain, unspecified SNOMED: 10521033 (4) ACS (acute coronary syndrome) ICD Codes: I24.9 - Acute ischemic heart disease, unspecified SNOMED: 699316473 (5) Diabetes mellitus ICD Codes: E11.9 - Type 2 diabetes mellitus without complications SNOMED: 31243235 Status: stable, progressing Assessment/Plan: pt diet pain control cardio f/u dc if clear Subjective Constitutional: Reports: weakness Allergies: Coded Allergies: IODINE (Verified Allergy, Unknown, 03/12/19) METFORMIN (Verified Allergy, Unknown, 03/12/19) SULFAMETHOXAZOLE (Verified Allergy, Unknown, 03/12/19) TRIMETHOPRIM (Verified Allergy, Unknown, 03/12/19) All Systems: reviewed and negative except above Subjective sleepy calm Objective Last 24 Hour Vital Signs Date Time Temp Pulse Resp B/P (MAP) Pulse Ox O2 Delivery O2 Flow Rate FiO2 03/15/19 09:00 87 101/68 03/15/19 09:00 101/68 03/15/19 08:35 Room Air 03/15/19 08:22 84 03/15/19 08:00 98.2 87 18 101/68 (79) 98 03/15/19 04:00 97.9 79 19 115/69 (84) 92 03/15/19 04:00 80 03/15/19 01:13 78 03/15/19 00:00 96.6 83 17 104/62 (76) 94 03/14/19 21:00 Room Air 03/14/19 21:00 58 98/60 03/14/19 20:00 98.0 85 18 111/86 (94) 100 03/14/19 18:40 97.5 03/14/19 16:00 97.0 82 22 99/70 (80) 99 03/14/19 15:56 80 03/14/19 12:00 97.5 83 20 90/61 (71) 99 03/14/19 11:41 88 Intake and Output 03/14/19 03/15/19 19:00 07:00 Intake Total 1000 ml 1000 ml Output Total 200 ml 200 ml Balance 800 ml 800 ml Intake Oral 1000 ml 1000 ml Output Urine Total 200 ml 200 ml # Voids 3 7 # Bowel Movements 1 1 Laboratory Tests 03/15/19 09:40: White Blood Count 6.0, Red Blood Count 4.86, Hemoglobin 14.1, Hematocrit 43.0, Mean Corpuscular Volume 88, Mean Corpuscular Hemoglobin 29.0, Mean Corpuscular Hemoglobin Concent 32.7, Red Cell Distribution Width 12.6, Platelet Count 213, Mean Platelet Volume 8.8, Neutrophils (%) (Auto) 61.5, Lymphocytes (%) (Auto) 28.6, Monocytes (%) (Auto) 6.1, Eosinophils (%) (Auto) 2.3, Basophils (%) (Auto ) 1.6, Sodium Level 137, Potassium Level 4.4, Chloride Level 105, Carbon Dioxide Level 23, Anion Gap 9, Blood Urea Nitrogen 19H, Creatinine 0.9, Estimat Glomerular Filtration Rate > 60, Glucose Level 220H, Calcium Level 8.9 Height (Feet): 5 Height (Inches): 2.00 Weight (Pounds): 180 General Appearance: lethargic EENT: normal ENT inspection Neck: normal alignment Cardiovascular: normal peripheral pulses, normal rate, regular rhythm Respiratory/Chest: chest wall non-tender, lungs clear, normal breath sounds Abdomen: normal bowel sounds, non tender, soft Extremities: normal inspection Edema: no edema noted Arm (L), no edema noted Arm (R), no edema noted Leg (L), no edema noted Leg (R), no edema noted Pedal (L), no edema noted Pedal (R), no edema noted Generalized Neurologic: motor weakness Skin: normal pigmentation, warm/dry Carlyle Rodríguez DO Mar 15, 2019 10:59
[2019-03-15 12:00] VITALS: BP 115/83
--- NOTE | 2019-03-15 12:59 | NUR ---
NURSE NOTES: Spoke with Dr. Gonzalez who said patient is cleared by cardio.
--- NOTE | 2019-03-15 13:14 | NUR ---
DISCHARGE DISPOSITION: PLEASE READ PATIENT TO BE DISCHARGED TO [facility] [address] T: [phone]>> CALL FOR REPORT [facility] ETA 1500 SKILLED CALL PLACED TO EX [phone] REGARDING DC PLAN
--- NOTE | 2019-03-15 14:05 | NUR ---
NURSE NOTES: Asked Dr. Larsen for clearance for DC Addendum: 03/15/19 at 1415 by CARIDAD CANDELARIO RN NURSE NOTES: Notified Dr. Wilkins that Dr. Larsen has been contacted two time for clearance, with no response. Asked if DC should proceed. Dr. Wilkins stated "I cleared"
--- NOTE | 2019-03-15 14:10 | NUR ---
NURSE NOTES: Contacted Dr. Wilkins to do Medication Reconciliation. Dr. Wilkins stated "continue home meds."
--- NOTE | 2019-03-15 14:35 | NUR ---
NURSE NOTES: Pt discharged back to [facility] with all belongings. IV removed, ID band remove, Telemetry box returned, pt signed all DC paperwork, Packet given to Ambulance personnel, pt is ambulatory, stable for discharge. Report given to Adriana at [facility]
--- NOTE | 2019-03-17 08:24 | Discharge Summary ---
Discharge Summary Discharge Summary _ DATE OF ADMISSION: 03/12/2019 DATE OF DISCHARGE: 03/15/2019 DISCHARGED BY: Dr. Rodríguez REASON FOR ADMISSION: 48 years old female with past medical history of hypertension, congestive heart failure, history of recent stent placement, COPD, diabetes mellitus, psychiatric history, hepatitis C, presented from the senior living facility complaining of chest pain. Chest pain started when patient was smoking a cigarette . Patient received aspirin by paramedics. Chest pain resolved. Upon evaluation vital signs were stable. Blood pressure was on the low side 92 /60. Pulse oximetry was stable on room air. Laboratory work-up revealed no leukocytosis, stable hemoglobin and hematocrit. Troponin negative. EKG revealed sinus rhythm with T wave inversion . proBNP 734. Stable electrolytes. BUN 22, creatinine 1.0. Glucose 231. Chest x-ray revealed no acute cardiopulmonary pathology.Cardiomegaly noted. Nitro was hold due to low blood pressure. Patient did not have any chest pain in emergency department. Patient received small bolus of the IV fluids with improvement in blood pressure and admitted to telemetry floor for further management. CONSULTANTS: hoop punch and coiler operator helper Dr. Gonzalez hospitalist Dr. Wilkins [facility] COURSE: Patient admitted to telemetry floor. Cardiology seen the patient. Serial troponin were negative. EKG revealed no acute ischemic changes. Patient was rule out for acute myocardial infarction. Echocardiogram demonstrated severe global left ventricular hypokinesis and septal dyskinesia with left ventricular ejection fraction 10 to 15%. No left ventricular hypertrophy. Global RV hypokinesis. Right ventricular systolic pressure of 57 consistent with moderate pulmonary hypertension. Moderate mitral regurgitation. Mild aortic regurgitation and mild to moderate tricuspid regurgitation. Per hoop punch and coiler operator helper, cardiomyopathy was likely nonischemic, secondary to fdc of methamphetamine use. Medical management of congestive heart failure provided according to the guidelines with beta-estephanie, MARIA A inhibitor and diuretic. Lasix initially was given via IV route. Further heart failure regimen can be optimized as outpatient. Volumes and cardiorenal parameters were closely monitored. DVT prophylaxis provided. Dual antiplatelet therapy with aspirin and Plavix continued. Chest pain resolved. Patient recently had stent placement, no need for stress test at this time. Consider placement of AICD. Noted low magnesium and magnesium was replaced. Supplemental oxygen was on board as needed to keep pulse oximetry above 92%. Pulse oximetry remained stable on room air. Bronchodilator therapy provided as needed. Venous duplex bilateral lower extremity revealed no evidence of acute DVT. Patient counseled on smoking cessation. Patient started on nicotine patch. Blood sugar was managed with sliding scale of insulin. Psychiatric medication regimen continued. Bowel regimen instituted. Supportive care provided. Patient clinically stabilized and was ready for transfer back to senior living facility for continuation of care . Continue with her hoop punch and coiler operator helper as outpatient. 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 DISCHARGE INSTRUCTIONS: Patient was discharged to the senior living facility. Follow up with medical doctor at the facility. I have been assigned to dictate discharge summary for this account. I was not involved in the patient's management. Fanny Garner NP Mar 17, 2019 08:24
--- NOTE | 2019-03-21 13:44 | NUR ---
*-* INSURANCE *-* ALL CLINICALS AND REVIEWS HAVE BEEN FAXED TO: ATTN:HENRIQUE P: [phone] F: [phone]
--- NOTE | 2019-03-22 17:22 | Cardiology Report ---
APPROVED REPORT EKG Measurement Heart [id number] IN [id number] Normal sinus rhythm Possible Left atrial enlargement Cannot rule out Anterior infarct, age undetermined Abnormal ECG
--- NOTE | 2019-03-23 12:12 | Cardiology Report ---
APPROVED REPORT EXAM: Two-dimensional and M-mode echocardiogram with Doppler and color Doppler. INDICATION Left Ventricular Function M-Mode DIMENSIONS IVSd1.0 (0.7-1.1cm)Left Atrium (MM)4.8 (1.6-4.0cm) LVDd6.2 (3.5-5.6cm)Aortic Root2.9 (2.0-3.7cm) PWd0.9 (0.7-1.1cm)Aortic Cusp Exc.1.6 (1.5-2.0cm) LVDs5.8 (2.5-4.0cm) PWs1.0 cm Severely enlarged left ventricle. Severe global left ventricular hypokinesis. Septal dyskinesis. Left ventricular ejection fraction estimated to be 10-15%. No left ventricular hypertrophy. Trivial posterior pericardial effusion. Moderate left atrial enlargement. Mild right atrial enlargement. Right ventricular chamber size is within normal limits. Global RV hypokinesis. Focal aortic valve sclerosis with adequate cusp excursion. Thickened mitral valve leaflets with normal excursion. Mitral annulus and aortic root calcification. Pulmonic valve not well visualized. Normal tricuspid valve structure. IVC dilated at 2.6 cm without physiologic collapse, suggestive of increased RA pressure. A color flow and spectral Doppler study was performed and revealed: Mild aortic regurgitation. Moderate mitral regurgitation. Mitral inflow indicates restrictive pattern, implying severely elevated left atrial pressure (Grade III). Mild to moderate tricuspid regurgitation. Tricuspid systolic velocities suggests peak right ventricular systolic pressure of 57 mmHg, consistent with moderate pulmonary hypertension. Pulmonic regurgitation present.
--- NOTE | 2019-03-24 17:00 | Consultation ---
DATE OF CONSULTATION: 03/13/2019 CARDIOLOGY CONSULTATION CONSULTING PHYSICIAN: Jerald Gonzalez M.D. REFERRING PHYSICIAN: Carlyle Rodríguez D.O. REASON FOR CONSULTATION: Management of chest pain. HISTORY OF PRESENT ILLNESS: The patient is a very unfortunate 48-year-old female, who presents to the emergency department for evaluation of chest pain from [facility]. She claims that the chest pain started about 30 minutes before her arrival to this facility while she was smoking a cigarette. The patient was given aspirin, however due to her low blood pressure, nitroglycerin tablet was not given. She states that her chest pain resolved after she took the aspirin. She has history of coronary artery disease and recently had coronary artery stent placement. She claims that she is compliant with her dual antiplatelet therapy including aspirin and clopidogrel. Her cardiovascular history is also significant for history of congestive heart failure and cardiomyopathy as well as history of polysubstance abuse including methamphetamine. Her coronary artery disease risk factors include diabetes mellitus, hypertension, and history of tobacco use. The patient was admitted to telemetry for further evaluation and management of chest pain and cardiomyopathy. Cardiology consultation was made at request of Dr. Carlyle Rodríguez. PAST MEDICAL HISTORY: Diabetes mellitus, hypertension, congestive heart failure, most likely nonischemic cardiomyopathy, COPD, psychiatric disorder including depression and anxiety, history of coronary artery disease, status post stent placement. PAST SURGICAL HISTORY: Angioplasty and stent placement. FAMILY HISTORY: There is no family history. No premature coronary artery disease in the first-degree relatives. SOCIAL HISTORY: History of methamphetamine abuse many years. Denies any alcohol use. ALLERGIES: Iodine, metformin, sulfamethoxazole and trimethoprim. REVIEW OF SYSTEMS: A 12-system review done, essentially negative except what was mentioned in the history of present illness. MEDICATIONS: List of medications at nursing facility including albuterol inhaler every 4 hours p.r.n. shortness of breath, Abilify 10 mg p.o. daily, aspirin 81 mg p.o. daily, carvedilol 3.125 mg twice daily, clopidogrel 75 mg p.o. daily, Lexapro 10 mg p.o. daily, furosemide 4 mg twice daily, glipizide 5 mg twice daily, heparin sodium 5000 units subcutaneous q.12 hours, lisinopril 5 mg p.o. daily, Zofran 4 mg q.4 hours p.r.n. nausea and vomiting, and trazodone 50 mg p.o. at bedtime. PHYSICAL EXAMINATION: VITAL SIGNS: Blood pressure at time of arrival to the hospital was 92/60 mmHg and heart rate was 81, respiration of 18, and temperature 98.1 degrees Fahrenheit. GENERAL: The patient is a very unfortunate 48-year-old female, in no apparent respiratory distress. Alert and oriented x4. HEENT: Atraumatic, normocephalic. Anicteric. Pupils are equal, round, and reactive to light and accommodation. Poor dentition. NECK: JVP less than 5 cm. No carotid bruit. Carotid upstrokes 2+ bilaterally. CARDIOVASCULAR: Normal S1 and S2. Regular rate and rhythm. No murmurs, gallops, or rubs. PMI is at fourth intercostal space in the midclavicular line. LUNGS: Diminished breath sounds in both lungs with rhonchi in both lungs. ABDOMEN: Soft, nontender, and nondistended. No hepatosplenomegaly. Positive bowel sounds. EXTREMITIES: No evidence of edema, clubbing, or cyanosis. IMAGING STUDY: A 2D echocardiography done on March 13, 2019 showed severe left ventricular enlargement with global left ventricular hypokinesia as well as septal dyskinesia. Overall, left ventricular ejection fraction of about 10% to 15%. There is also enlargement of right and left atrial cavity, however RV size is within normal limits, but globally hypokinetic. There was a mild aortic regurgitation, moderate mitral regurgitation, and grade 3 LV diastolic dysfunction or severely elevated left atrial pressure. This is compatible with restrictive LV physiology. There is also severe pulmonary hypertension with pulmonary artery pressure approximately 60 mmHg. LABORATORY FINDINGS: Sodium was 136, potassium 4.2, chloride 102, bicarbonate 28, BUN of 22, creatinine 1.0, glucose 231, calcium is 8.8. Troponin I was 0.022. ProBNP was 734. Toxicology showed negative. A 12-lead electrocardiogram revealed sinus rhythm with left atrial enlargement, anterior wall infarct, age indeterminate, QT interval prolonged at 478 mmHg. ASSESSMENT AND PLAN: The patient is a very unfortunate 48-year-old female, seen in Cardiology consultation. 1. Chest pain, atypical, acute myocardial infarction is ruled out. A 12-lead electrocardiogram does not show any ischemic features. The patient's chest pain is completely resolved after she was given aspirin . No further cardiac intervention is required at this time. 2. Cardiomyopathy possibly nonischemic due to methamphetamine use for many years. Left ventricular ejection fraction is approximately 10% to 15%. The patient is on low-dose heart failure regimen required to be optimized in an outpatient setting. 3. History of CAD, status post stent placement. We will continue the patient on dual antiplatelet therapy including aspirin and Plavix. Acute myocardial infarction is ruled out. There are no EKG changes suggestive of ischemia. 4. History of diabetes mellitus. Require tight blood sugar control. Hemoglobin A1c to be done. 5. Hypotension, not quite clear why she is hypotensive at this time. There is no recent use of nitroglycerin. It might be that the patient's medication for heart failure keep her blood pressure in the low range, I will however like to continue the guideline directed by medical therapy as she was asymptomatic. I would like to thank Dr. Rodríguez, for the courtesy of this consultation. Jerald Gonzalez M.D. DR: LYLY JOB#: [id number] CC:
== END 2019-03-15 14:35 | DRG 198 ==
LOC: EDBD 18:58 → EMR 19:13 → OBSVTOIN 19:50 → 2E 19:50 → EDBEDREQ 20:35
DX: I24.9 Acute ischemic heart disease, unspecified (principal); B19.20 Unspecified viral hepatitis C without hepatic coma; I42.9 Cardiomyopathy, unspecified; I11.0 Hypertensive heart disease with heart failure; I50.20 Unspecified systolic (congestive) heart failure; I25.10 Atherosclerotic heart disease of native coronary artery without angina pectoris; Z95.5 Presence of coronary angioplasty implant and graft; E11.9 Type 2 diabetes mellitus without complications; E46 Unspecified protein-calorie malnutrition; E83.42 Hypomagnesemia; F17.200 Nicotine dependence, unspecified, uncomplicated; Z88.1 Allergy status to other antibiotic agents; Z88.2 Allergy status to sulfonamides; Z88.8 Allergy status to other drugs, medicaments and biological substances; Z79.02 Long term (current) use of antithrombotics/antiplatelets
CPT/HCPCS: 36415; 71045; 80048; 80053; 80307; 82550; 82553; 82962; 83735; 83880; 84484; 85025; 87081; 93005; 93306; 93970; 94640; 94664; 96360; 96374; 99285; J1815; J7620